=== PATIENT | female | born 1955 | race Caucasian/White ===

== ENCOUNTER 2022-09-23 18:51 | Emergency (ER) | payer MEDICARE, OTHER ==
[~2022-09-23] VITALS: Ht 167.6 cm; Wt 80.7 kg
--- NOTE | 2022-09-23 19:23 | NUR ---
BIB PRIVATE AMBULANCE FROM [facility]. BROUGHT IN FOR DECREASED MENTAL STATUS SINCE THIS AM. UPON ARRIVAL PT WAS AAOX4. PT PLACED IN BED AND PLACED IN MONITOR. COVID POSITIVE SINCE SATURDAY, NO SYMPTOMS. AWAITING MD ORDERS.
--- NOTE | 2022-09-23 19:55 | NUR ---
RAC #20G S/L BLOOD AND COVID ANTIGEN SWAB COLLECTED AND SENT TO LAB
--- NOTE | 2022-09-23 20:00 | NUR ---
PT TAKEN TO CT VIA [facility]
[2022-09-23 20:22] LABS: BASOPHILS % (AUTO) 0.2 % (0.0-2.0); EOSINOPHILS % (AUTO) 0.2 % (0.0-6.0); HEMATOCRIT 47 % (33-45); HEMOGLOBIN 15.5 g/dL (11.5-14.8); LYMPHOCYTES % (AUTO) 53.1 % (20.0-44.0); MEAN CORPUSCULAR HGB CONC 33 g/dl (31.0-36.0); MEAN CORPUSCULAR VOLUME 88 fL (82-100); MONOCYTES # (AUTO) 0.5 K/uL (0.1-1.30); MONOCYTES % (AUTO) 9.2 % (2.0-12.0); NEUTROPHILS # (AUTO) 2.1 K/uL (1.8-8.9); NEUTROPHILS % (AUTO) 37.3 % (43.0-81.0); PLATELET COUNT (AUTO) 206 K/uL (150-450); RED BLOOD CELL COUNT(AUTO) 5.29 MIL/uL (4.0-5.2); WHITE BLOOD COUNT (AUTO) 5.6 K/uL (4.3-11.0)
--- NOTE | 2022-09-23 20:34 | NUR ---
URINE COLLECTED AND SENT TO LAB
[2022-09-23 20:50] LABS: MAGNESIUM 2.4 mg/dL (1.8-2.4)
[2022-09-23 20:55] LABS: CALCIUM, SERUM 7.7 mg/dL (8.5-10.1); CARBON DIOXIDE 28 mmol/L (21-32); CHLORIDE 105 mmol/L (98-107); CREATININE 0.8 mg/dL (0.6-1.3); GLUCOSE 105 mg/dL (74-106); SODIUM SERUM 143 mmol/L (136-145); UREA NITROGEN, BLOOD 20 mg/dL (7-18)
[2022-09-23 21:01] LABS: ALANINE AMINOTRANSFERASE 22 U/L (12-78); ALKALINE PHOSPHATASE 94 U/L (46-116); ASPARTATE AMINOTRANSFERASE 26 U/L (15-37); BILIRUBIN,DIRECT 0.1 mg/dL (0.0-0.2); BILIRUBIN,TOTAL 0.2 mg/dL (0.2-1.0); TOTAL PROTEIN, SERUM 7.4 g/dL (6.4-8.2)
[2022-09-23 21:08] LABS: THYROID STIMULATING HORMONE 1.255 uIU/mL (0.358-3.74)
[2022-09-23 21:17] VITALS: BP 111/74
--- NOTE | 2022-09-23 21:57 | NUR ---
called [facility] and report givent to maisha. Maisha made aware of the covid + status
--- NOTE | 2022-09-23 21:58 | NUR ---
CALLED [facility] FOR TRANSPORTATION ETA IS 90 MIN
[2022-09-23 22:23] LABS: BILIRUBIN,URINE NEGATIVE (NEGATIVE); COLOR,URINE YELLOW (YELLOW); LEUKOCYTE ESTERASE ,URINE NEGATIVE (NEGATIVE); NITRITE, URINE NEGATIVE (NEGATIVE); PROTEIN,URINE NEGATIVE (NEGATIVE); UGLUCOSE NEGATIVE (NEGATIVE); UROBILINOGEN,URINE 0.2 EU/dL (0.2)
--- NOTE | 2022-09-23 23:29 | NUR ---
[facility] AT BED SIDE TO [facility] THE PT
== END 2022-09-23 23:53 ==
LOC: ER 19:00
DX: U07.1 COVID-19 (principal); E24.9 Cushing's syndrome, unspecified; K21.9 Gastro-esophageal reflux disease without esophagitis; I10 Essential (primary) hypertension
CPT/HCPCS: 36415; 70450-TC; 71045-TC; 80048-TC; 80076-TC; 82550-TC; 82962-TC; 83735-TC; 84443-TC; 84484-TC; 85025-TC; 87086-TC; C9803